=== PATIENT | female | born 1985 | race Two or more races ===

== ENCOUNTER 2025-01-04 15:42 | Emergency (ER) | payer MEDICAID, SELFPAY ==
[2025-01-04 15:43] VITALS: BMI 40.0
[2025-01-04 16:09] VITALS: BP 128/76; PULSE 86; RESP 18; TEMP 36.8; O2SAT 100
--- NOTE | 2025-01-04 16:11 | XR_ITS ---
Examination: CT brain head without contrast. 2-D sagittal coronal reconstructions Date and time of exam:January 04, 2025 1644 hours Comparison May 27, 2009 INDICATIONS: Onset generalized head pain beginning 3 days ago CTDI: vol (mGy):52.7 DLP: (mGycm):962 Technique: Multiple CT axial sections of the brain have been obtained, 5 mm slice thickness. Contrast has not been administered. 2-D sagittal, coronal reconstructions have been obtained Low dose protocols were performed. One or more of the following dose reduction techniques were used; automated exposure control, adjustment of the mA and/or KV according to patient size, use of iterative reconstruction technique. Findings: No significant ventricular enlargement. Intra-axial or extra-axial hemorrhage density is not seen. No mass effect or midline shift Basal cisterns are not remarkable. Fourth ventricle is midline. Cranial vault intact. Impression: Negative for acute hemorrhage, mass effect or midline shift Advise clinical correlation and follow-up accordingly
--- NOTE | 2025-01-04 16:12 | EDNOTE_ITS ---
ED Headache RME/HPI General Stated Complaint: SENT BY PCP FAIL NEURO TEST Time Seen by Provider: 01/04/25 15:48 Arrival date/time: 01/04/25 15:42 RME / HPI RME / HPI Narrative: 39-year-old female patient with significant history of migraine headache, came in for evaluation regarding worsening headache. Been having headache for the last 3 days, been taking her Tylenol and sumatriptan with no relief. Went to PCP today and was referred here for possible CT scan of the head. Denies any other complaints. No weakness no slurring of speech no blurry vision no nausea no vomiting no recent head trauma or fall. No fever also. Denies any neck pain. Related Data Previous Rx's ?Medication ?Instructions ?Recorded rizatriptan 10 mg tablet (Maxalt) 10 mg PO Q2H PRN ubaldo rachna headache 01/04/25 #20 tabs Allergies Allergy/AdvReac Type Severity Reaction Status Date / Time ibuprofen Allergy Verified 01/04/25 15:47 Review of Systems Review of Systems Narrative Review of Systems: Review of system reviewed and within normal limits except mentioned in HPI ED Exam Narrative Physical exam: VITAL SIGNS: Reviewed. GENERAL APPEARANCE: Alert and interactive, follows commands, no acute distress, HEAD AND FACE: Non-traumatic. ENT: PERRL, pink conjunctivitis, eyelid no trauma, Mucous membrane moist. NECK: Supple, nontender, no nuchal rigidity. CHEST: No tenderness, no crepitus, no paradoxical movement, no retractions. LUNGS: Clear, well ventilated, symmetric, no rales, no wheezing, no ronchi, no stridor, good breath sounds bilaterally. HEART: Regular rate, regular rhythm, no murmur, no gallops. ABDOMEN: Soft, positive bowel sounds, nondistended, no guarding, nontender, no rebound, no masses, RECTAL: Deferred. GENITAL: Deferred. NEUROLOGICAL: Gross motor function intact sensory function intact, Appropriate for age. MUSCULOSKELETAL: low back nontender, full range of motion. EXTREMITIES: Nontender, full range of motion. SKIN: Color pink, dry, no rash, no lacerations, no abrasions, no contusions. LYMPHATICS: Deferred. Course Quality Measures none Orders Category Date Time Status CT head/brain wo con Stat Exams 01/04/25 16:11 Completed HCG Qualitative,Urine Stat Lab 01/04/25 16:31 Completed Acetaminophen Tab [Tylenol ES Tab] Med 01/04/25 16:11 Discontinued 1,000 mg PO X1 ONE DiphenhydrAMINE [Benadryl] Med 01/04/25 16:11 Discontinued 50 mg PO X1 ONE Metoclopramide [Reglan] Med 01/04/25 16:11 Discontinued 10 mg PO X1 ONE Vital Signs Vital signs: Vital Signs Temperature 98.3 F 01/04/25 16:09 Pulse Rate 86 01/04/25 16:09 Respiratory Rate 18 01/04/25 16:09 Blood Pressure 128/76 01/04/25 16:09 Pulse Oximetry (%) 100 01/04/25 16:09 Oxygen Delivery Method Room Air 01/04/25 16:09 Headache MDM Narrative MDM Narrative:: 39-year-old female patient with significant history of migraine headache, came in for evaluation regarding worsening headache. Been having headache for the last 3 days, been taking her Tylenol and sumatriptan with no relief. Went to PCP today and was referred here for possible CT scan of the head. Denies any other complaints. No weakness no slurring of speech no blurry vision no nausea no vomiting no recent head trauma or fall. No fever also. Denies any neck pain. CT scan of the head came back unremarkable. Results discussed with the patient. Patient was given Tylenol Reglan and Benadryl with complete resolution of headache. Patient appears nontoxic and hemodynamically stable. Patient discharged home and instructed to follow-up with primary care provider in 24 to 48 hours. Instructed to return to the emergency department immediately if worsening of symptoms Patient data External records reviewed:: None Clinical information provided by:: patient Social determinants that could affect healthcare access:: none Patient has the following chronic illnesses:: history of migraine headache How is presenting disease/condition affected by chronic disease/condition?: exacerbated by Evaluation data The following diagnostics were reviewed and interpreted by me:: radiology exam(s) Lab and/or radiology exams considered but not ordered:: None Interpretation Summary: CT scan of the head came back normal Medications / Prescriptions Medications or Prescriptions considered but not ordered:: None Medication administrations:: Medication Administration History Discontinued Medications Acetaminophen (Acetaminophen 500 Mg Tablet) 1,000 mg PO X1 ONE Stop: 01/04/25 16:12 Last Admin: 01/04/25 16:53 Dose: 1,000 mg Documented By: OA Diphenhydramine HCl (Diphenhydramine 25 Mg Capsule) 50 mg PO X1 ONE Stop: 01/04/25 16:12 Last Admin: 01/04/25 16:53 Dose: 50 mg Documented By: OA Metoclopramide HCl (Metoclopramide 5 Mg Tablet) 10 mg PO X1 ONE Stop: 01/04/25 16:12 Last Admin: 01/04/25 16:53 Dose: 10 mg Documented By: OA Tylenol Benadryl and Reglan Consultations Consultation(s) initiated? (list below): No Diagnosis Differential diagnosis headache: migraine, tension headache and headache Most likely diagnosis given after review of the tests above:: Headache Admission Indicated Admission indicated?: not indicated Admission Request Was there a request for admission?: No Disposition Plan Disposition Plan: Discharge Discharge Attestation Discharge Attestation: The patient was given an opportunity to ask questions and understood the discharge instructions. Discharge instructions specifically effects, indications for sooner follow up or return to the emergency department, and the expected course of current diagnosis. Patient condition: Stable Discharge Plan Plan Patient Disposition: HOME (Self Care) Disposition Comment: stable Prescriptions/Referrals Prescriptions/Med Rec: New rizatriptan [Maxalt] 10 mg tablet 10 mg PO Q2H PRN (Reason: migraine headache) Qty: 20 0RF Rx Instructions: do not exceed 3 doses per 24 hrs Referrals: Harvinder Sanchez MD [Primary Care Provider] - In 1 week Problem List Clinical Impression: Headache Patient/Caregiver Discharge Instructions Discharge Activity: activity as tolerated Education Materials: Self-Care for Headaches Additional Instructions: Thank you for the opportunity for serving you today. You are stable for discharged . You are advised to: Follow-up with your PCP in 1 to 2 days Return to ED for worsening of symptoms Increase oral fluids Take medication as prescribed Print Language: Faroese Stand Alone Forms: Merly Award Info., Patient Portal Info Letter LOKI/ROSELYN Supervising Physician LOKI/ROSELYN Supervising Physician: MD Prabhjot
[2025-01-04 16:50] LABS: HCG Qualitative,Urine Negative
[2025-01-04] MEDS: METOCLOPRAMIDE 5 MG TABLET 10 MG PO (16:53)
[2025-01-04] MEDS: DiphenhydrAMINE 25 MG CAPSULE 50 MG PO (16:53)
[2025-01-04] MEDS: ACETAMINOPHEN 500 MG TABLET 1000 MG PO (16:53)
== END 2025-01-04 21:00 | disposition home or self-care (01) ==
PROVIDERS: Nurse Practitioner Family; Emergency Provider Emergency Medicine; PCP Family Medicine
DX: G43.909 Migraine, unspecified, not intractable, without status migrainosus (principal); Z88.6 Allergy status to analgesic agent
CPT/HCPCS: 70450; 81025; 99284; A9270

== ENCOUNTER 2025-01-13 22:11 | Emergency (ER) | payer MEDICAID, SELFPAY ==
[2025-01-13 22:45] VITALS: BP 127/80; PULSE 86; RESP 18; TEMP 36.8; O2SAT 99; BMI 37.7
--- NOTE | 2025-01-13 22:53 | EKG_ITS ---
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
--- NOTE | 2025-01-13 22:53 | EDRME_ITS ---
Rapid Medical Screening Exam [facility] Arrival date/time: 01/13/25 22:11 39F with history of migraines and anemia presents to ED with 1 week of worsening generalized weakness, dizziness, and SOB. Patient states last time this happened her Hgb was very low. Patient denies URI symptoms. Chief Complaint: Shortness of Breath/Dyspnea Vital signs: Vital Signs Temperature 98.3 F 01/13/25 22:45 Pulse Rate 86 01/13/25 22:45 Respiratory Rate 18 01/13/25 22:45 Blood Pressure 127/80 01/13/25 22:45 Pulse Oximetry (%) 99 01/13/25 22:45 Oxygen Delivery Method Room Air 01/13/25 22:45
[2025-01-13 23:19] LABS: Collection Type, Urine Clean Catch
[2025-01-13 23:19] LABS: Basophils # (Auto) 0.1 Thou/mm3 (0.0-0.2); Basophils % (Auto) 1 % (0-2.5); Eosinophils # (Auto) 0.1 Thou/mm3 (0.0-0.5); Eosinophils % (Auto) 1 % (0-10); Hematocrit 31.1 % (36.0-46.0); Hemoglobin 9.4 g/dL (12.0-16.0); Immature Granulocytes % (Auto) 0 % (0-0); Immature Granulocytes Auto 0.02 Thou/mm3 (0.00-0.00); Lymphocytes # (Auto) 3.6 Thou/mm3 (1.0-4.8); Lymphocytes % (Auto) 35 % (10-50); Mean Corpuscular HGB Conc 30.2 g/dl (31.0-37.0); Mean Corpuscular Hemoglobin 21.9 pg (25.0-35.0); Mean Corpuscular Volume 72 fL (80-100); Monocytes # (Auto) 0.7 Thou/mm3 (0.0-0.8); Monocytes % (Auto) 7 % (0-12); Neutrophils # (Auto) 5.8 Thou/mm3 (1.8-7.7); Neutrophils % (Auto) 56 % (37-80); Nucleated Red Blood Cell % 0 /100 WBC (0); Platelet Count 315 Thou/mm3 (140-440); White Blood Count 10.4 Thou/mm3 (3.6-11.0)
[2025-01-13 23:25] LABS: Bilirubin,Urine Negative (Negative); Blood,Urine Negative (Negative); Clarity,Urine Clear (Clear/Hazy); Color,Urine Colorless (Lt Yel-Yel); Glucose, Urine Negative (Negative); Ketones,Urine Negative (Negative); Leukocyte Esterase,Urine Negative (Negative); Nitrite,Urine Negative (Negative); PH,Urine 6.5 (5.0-7.0); Protein,Urine Negative (Neg - Trace); RBC,Urine < 1 /hpf (0-3); Specific Gravity,Urine 1.008 (1.001-1.035); Squamous Epithelial Cell,Urine 1 /hpf (0-5); Urobilinogen,Urine Negative mg/dL (0.0-1.0); WBC,Urine 1 /hpf (0-5)
[2025-01-13 23:29] LABS: HCG Qualitative,Urine Negative
[2025-01-14 00:18] LABS: Alanine Aminotransferase 16 U/L (10-49); Albumin, Serum 4.6 gm/dL (3.5-5.0); Albumin/Globulin Ratio 1.5 (1.2-2.2); Alkaline Phosphatase 125 U/L (46-116); Anion Gap 6 (7-16); Aspartate Amino Transferase 18 U/L (0-34); BUN/Creatinine Ratio 16 Ratio (12-20); Bilirubin,Total 0.3 mg/dL (0.3-1.2); Blood Urea Nitrogen 11 mg/dL (9-23); Calcium 9.5 mg/dL (8.3-10.6); Calcium (Corrected) 9.5 mg/dL (8.5-10.1); Carbon Dioxide 29.5 mMol/L (20.0-31.0); Chloride 108 mMol/L (98-107); Creatinine (Component) 0.7 mg/dL (0.6-1.3); Estimated Creatinine Clearance 144.8 mL/min (>60); Globulin 3.1 gm/dL (2.3-3.5); Glucose 79 mg/dL (74-106); Osmolality,Calculated 283 (275-295); Sodium 143 mMol/L (136-145); Total Protein 7.7 gm/dL (5.7-8.2); Troponin I < 0.002 ng/mL (0.0-0.045); eGFR > 60 See Note
--- NOTE | 2025-01-14 02:35 | PD.EDSOB ---
ED SOB =RME/HPI General Chief Complaint: Shortness of Breath/Dyspnea Stated Complaint: SHORTNESS OF BREATH/DIZZINESS Time Seen by Provider: 01/13/25 22:56 Arrival date/time: 01/13/25 22:11 39F with history of migraines and anemia presents to ED with 1 week of worsening generalized weakness, dizziness, and SOB. Patient states last time this happened her Hgb was very low. Patient denies URI symptoms. Limitations: no limitations RME / HPI RME / HPI Narrative: 01/13/25 22:11 39F with history of migraines and anemia presents to ED with 1 week of worsening generalized weakness, dizziness, and SOB. Patient states last time this happened her Hgb was very low. Patient denies URI symptoms. Related Data Previous Rx's ?Medication ?Instructions ?Recorded rizatriptan 10 mg tablet (Maxalt) 10 mg PO Q2H PRN migraine headache 01/04/25 #20 tabs Allergies Allergy/AdvReac Type Severity Reaction Status Date / Time ibuprofen Allergy Verified 01/13/25 22:13 Review of Systems Review of Systems Systems Reviewed: All systems reviewed, normal except as documented Constitutional Constitutional: Reports system reviewed and no additional complaints, except as documented, Denies fever(s), Denies headache(s) and Reports weakness ENT Ears, Nose, Mouth, and Throat: Reports as per HPI, Denies disequilibrium, Denies headache(s) and Reports vertigo Cardiovascular Cardiovascular: Reports system reviewed and no additional complaints, except as documented, Denies chest pain and Denies dyspnea Respiratory Respiratory: Reports system reviewed and no additional complaints, except as documented, Reports as per HPI, Reports cough and Denies dyspnea Gastrointestinal Gastrointestinal: Reports system reviewed and no additional complaints, except as documented, Denies abdominal pain, Denies nausea and Denies vomiting Neurologic Neurologic: Reports system reviewed and no additional complaints, except as documented, Reports as per HPI, Denies confusion, Denies disequilibrium, Denies headache(s), Reports vertigo and Reports weakness Psychiatric Psychiatric: Denies confusion Past Medical History Past Medical History NEUROLOGIC: Positive Migraine; Negative Seizures or Traumatic Brain Injury CARDIAC: Positive Varicose Veins; Negative Cardiac Disorders, Congestive Heart Failure or Edema RESPIRATORY: Positive Pneumonia; Negative Chronic Obstructive Pulmonary Disease (COPD), Asthma, Tuberculosis or Sleep Apnea GASTROINTESTINAL: Positive Gall Bladder Disease; Negative Hepatitis, Celiac Disease, Colitis, Ulcer, Irritable Bowel, Crohn's Disease or Hemorrhoids GENITOURINARY: Negative Genitourinary Disorders, Renal Disease, Kidney Stones or Dialysis REPRODUCTIVE: Positive Previous Pregnancies MUSCULOSKELETAL: Positive Arthritis; Negative Osteoporosis, Gout, Scoliosis or Fractures ENT: Negative Glaucoma or Ear Infection ENDOCRINE: Negative Endocrine Disorders, Diabetes Mellitus Type 1, Diabetes Mellitus Type 2, Hypoglycemia or Hyperthyroidism HEMATOLOGIC: Positive Blood Disorders and Anemia; Negative Hemophilia, Sickle Cell Disease or Clotting Problems PSYCHO/SOCIAL: Positive Anxiety and Depression; Negative Recreational Drug Use or Bipolar Disorder OTHER HISTORY: Positive Chicken Pox; Negative Hospitalization, Autoimmune Disease, Down Syndrome, Developmental Delay, Shingles, Falls, Blood Transfusions, Blood Transfusion Reaction, Anesthesia Reactions, Chemotherapy, Radiation Therapy, MRSA, VRSA, Measles, Mumps or Cancer Family History FAMILY HISTORY: Positive Family Cardiac Disorders and Family Gastrointestinal Problems; Negative Family Psychiatric Problems, Family Respiratory Disorders, Family Cancer, Family Surgery or Family Anesthesia Reaction Surgical History SURGICAL: Positive Abdominal Surgery, Gastric Bypass Surgery and Section; Negative Pacemaker Social History SMOKING STATUS: Never smoker ED Exam General Limitations: Present no limitations General appearance: Present alert and in no apparent distress Head Head exam: Present atraumatic Eye Eye exam: Present normal appearance, PERRL and EOMI ENT ENT exam: Present normal exam, normal oropharynx and mucous membranes moist Neck Neck exam: Present normal inspection, full ROM and trachea midline Chest Chest inspection: Present normal inspection and symmetric chest wall rise Respiratory Respiratory exam: Present normal lung sounds bilaterally Cardiovascular Cardiovascular exam: Present regular rate, normal rhythm and normal heart sounds Abdominal Exam Abdominal exam: Present soft and normal bowel sounds Extremities Exam Extremities exam: Present normal inspection and full ROM Back Exam Back exam: Present normal inspection and full ROM Neurological Exam Neurological exam: Present alert, oriented X3 and CN II-XII intact Psychiatric Psychiatric exam: Present normal affect and normal mood Skin Skin exam: Present warm, dry, intact and normal color Course Quality Measures none Orders Category Date Time Status EKG (ED ONLY) *Do not use* NOW Care 01/13/25 22:53 Completed EKG (ED Only) Stat Exams 01/13/25 22:53 Draft CBC Stat Lab 01/13/25 23:01 Completed Comprehensive Metabolic Panel Stat Lab 01/13/25 23:01 Completed HCG Qualitative,Urine Stat Lab 01/13/25 23:10 Completed Troponin I Stat Lab 01/13/25 23:01 Completed Urinalysis Stat Lab 01/13/25 23:10 Completed Vital Signs Vital signs: Vital Signs Temperature 98.3 F 01/13/25 22:45 Pulse Rate 86 01/13/25 22:45 Respiratory Rate 18 01/13/25 22:45 Blood Pressure 127/80 01/13/25 22:45 Pulse Oximetry (%) 99 01/13/25 22:45 Oxygen Delivery Method Room Air 01/13/25 22:45 O2 at 99% on RA and WNLs Shortness of Breath / Dyspnea MDM Narrative MDM Narrative:: 39F with history of migraines and anemia presents to ED with 1 week of worsening generalized weakness, dizziness, and SOB. Patient states last time this happened her Hgb was very low. Patient denies URI symptoms. Physical exam reveals clear ENT and lungs. RRR. Normal WOB. Patient is afebrile, calm, and alert. EKG is NSR. CMP unremarkable. Trop normal. UA clean. No dehydration. Hgb 9.4, likely causing symptoms. Patient states she's prone to heavy and long menstrual cycles. 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 Patient data External records reviewed:: [facility] previous records Clinical information provided by:: patient Social determinants that could affect healthcare access:: none Patient has the following chronic illnesses:: migraines and anemia How is presenting disease/condition affected by chronic disease/condition?: caused by Evaluation data The following diagnostics were reviewed and interpreted by me:: lab results and EKG tracing(s) Lab and/or radiology exams considered but not ordered:: ordered Interpretation Summary: above Medications / Prescriptions Medications or Prescriptions considered but not ordered:: not ordered Medication administrations:: n/a Consultations Consultation(s) initiated? (list below): No Diagnosis Shortness of Breath Differential Diagnosis: acute exacerbation of chronic obstructive airways disease, congestive heart failure, community acquired pneumonia, asthma with exacerbation, pulmonary embolism and other (anemia) Most likely diagnosis given after review of the tests above:: anemia Admission Indicated Admission indicated?: not indicated Admission Request Was there a request for admission?: No Disposition Plan Disposition Plan: Discharge Discharge Attestation Discharge Attestation: The patient and all family members were given an opportunity to ask questions and understood the discharge instructions. Discharge instructions specifically effects, indications for sooner follow up or return to the emergency department, and the expected course of current diagnosis. Patient condition: Stable Discharge Plan Plan Patient Disposition: HOME (Self Care) Disposition Comment: Stable Prescriptions/Referrals Prescriptions/Med Rec: No Action rizatriptan [Maxalt] 10 mg tablet 10 mg PO Q2H PRN (Reason: migraine headache) Qty: 20 0RF Rx Instructions: do not exceed 3 doses per 24 hrs Referrals: Harvinder Sanchez MD [Primary Care Provider] - In 1 week Problem List Clinical Impression: Anemia Patient/Caregiver Discharge Instructions Education Materials: ED Anemia Type Not Specified Additional Instructions: Please follow-up with PCP/OBGYN within 24-48 hours and return immediately if symptoms worsen. Print Language: Iranian Stand Alone Forms: Patient Portal Info Letter PA/RETAIL SALES ASSOCIATE Supervising Physician PA/RETAIL SALES ASSOCIATE Supervising Physician: Dr. Herron
[2025-01-14 02:40] VITALS: BP 113/75; PULSE 79; RESP 18; TEMP 36.8; O2SAT 98
== END 2025-01-14 02:43 | disposition home or self-care (01) ==
PROVIDERS: Physician Assistant; Emergency Provider Emergency Medicine; PCP Family Medicine
DX: D64.9 Anemia, unspecified (principal); G43.909 Migraine, unspecified, not intractable, without status migrainosus; Z98.84 Bariatric surgery status
CPT/HCPCS: 36415; 80053; 81001; 81025; 84484; 85025; 93005; 99283

== ENCOUNTER 2025-07-21 16:28 | Emergency (ER) | payer MEDICAID, SELFPAY ==
[2025-07-21 16:35] VITALS: BP 122/73; PULSE 89; RESP 18; TEMP 37.3; O2SAT 99; BMI 38.9
--- NOTE | 2025-07-21 16:52 | EKG_ITS ---
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
--- NOTE | 2025-07-21 16:52 | XR_ITS ---
Examination: PA lateral chest 2 views Technique: Upright PA lateral chest 2 views Date and time: July 21, 2025, 1707 hrs. Indications: Chest pain beginning 2 weeks ago. Findings: Normal heart size. Lungs are clear. The osseous structures are intact Impression: No active disease.
--- NOTE | 2025-07-21 16:53 | PD.EDRME ---
Rapid Medical Screening Exam [facility] Arrival date/time: 07/21/25 16:28 40-year-old female with no known medical history presents to the emergency room with a chief complaint of chest pain, palpitations, generalized weakness x 1 week I have greeted and performed a focused initial assessment of this patient. A comprehensive ED assessment and evaluation of the patient, analysis of all test results, and completion of the medical decision making process will be conducted by additional ED providers. Chief Complaint: Weakness Vital signs: Vital Signs Temperature 99.1 F 07/21/25 16:35 Pulse Rate 89 07/21/25 16:35 Respiratory Rate 18 07/21/25 16:35 Blood Pressure 122/73 07/21/25 16:35 Pulse Oximetry (%) 99 07/21/25 16:35 Oxygen Delivery Method Room Air 07/21/25 16:35 Vital signs reviewed by provider: Yes
[2025-07-21 17:19] LABS: Basophils # (Auto) 0.1 Thou/mm3 (0.0-0.2); Basophils % (Auto) 1 % (0-2.5); Eosinophils # (Auto) 0.1 Thou/mm3 (0.0-0.5); Eosinophils % (Auto) 1 % (0-10); Hematocrit 28.7 % (36.0-46.0); Immature Granulocytes Auto 0.02 Thou/mm3 (0.00-0.00); Lymphocytes # (Auto) 3.5 Thou/mm3 (1.0-4.8); Lymphocytes % (Auto) 32 % (10-50); Mean Corpuscular HGB Conc 30.3 g/dl (31.0-37.0); Mean Corpuscular Hemoglobin 20.9 pg (25.0-35.0); Mean Corpuscular Volume 69 fL (80-100); Monocytes # (Auto) 0.5 Thou/mm3 (0.0-0.8); Monocytes % (Auto) 5 % (0-12); Neutrophils # (Auto) 6.7 Thou/mm3 (1.8-7.7); Neutrophils % (Auto) 62 % (37-80); Nucleated Red Blood Cell # 0.00 Thou/mm3 (0.00-0.00); Nucleated Red Blood Cell % 0 /100 WBC (0); Platelet Count 361 Thou/mm3 (140-440); RDW Standard Deviation 45.5 fL (36.4-46.3); Red Blood Count 4.17 Miln/mm3 (4.00-5.20); White Blood Count 10.8 Thou/mm3 (3.6-11.0)
[2025-07-21 17:20] LABS: Hemoglobin 8.7 g/dL (12.0-16.0)
[2025-07-21 17:26] LABS: Collection Type, Urine Clean Catch
[2025-07-21 17:40] LABS: INR 1.0 (0.9-1.3); Partial Thromboplastin Time 23.9 Seconds (22.0-36.0); Prothrombin Time 10.7 Seconds (9.0-12.2)
[2025-07-21 17:41] LABS: B-Type Natriuretic Peptide < 20 pg/mL (0-100)
[2025-07-21 17:41] LABS: Bilirubin,Urine Negative (Negative); Blood,Urine Negative (Negative); Clarity,Urine Clear (Clear/Hazy); Color,Urine Colorless (Lt Yel-Yel); Culture Indicated,Urine Not Indicated; Glucose, Urine Negative (Negative); Ketones,Urine Negative (Negative); Leukocyte Esterase,Urine Negative (Negative); Nitrite,Urine Negative (Negative); PH,Urine 6.5 (5.0-7.0); Protein,Urine Negative (Neg - Trace); RBC,Urine 1 /hpf (0-3); Specific Gravity,Urine 1.004 (1.001-1.035); Squamous Epithelial Cell,Urine 1 /hpf (0-5); Urobilinogen,Urine Negative mg/dL (0.0-1.0); WBC,Urine < 1 /hpf (0-5)
[2025-07-21 17:46] LABS: Amphetamine/Methamp Scrn,U Negative (Negative); Barbiturate Screen,Urine Negative (Negative); Benzodiazepines Screen,Urine Negative (Negative); Benzoylecgonine Screen, Ur Negative (Negative); Fentanyl Screen,Urine Negative (Negative); Opiate Screen,Urine Negative (Negative); THC Screen,Urine Negative (Negative)
[2025-07-21 17:54] LABS: Alanine Aminotransferase 9 U/L (10-49); Albumin, Serum 4.4 gm/dL (3.5-5.0); Albumin/Globulin Ratio 1.5 (1.2-2.2); Alkaline Phosphatase 105 U/L (46-116); Anion Gap 11 (7-16); Aspartate Amino Transferase 16 U/L (0-34); BUN/Creatinine Ratio 9 Ratio (12-20); Bilirubin,Total 0.3 mg/dL (0.3-1.2); Blood Urea Nitrogen 7 mg/dL (9-23); Calcium 9.5 mg/dL (8.3-10.6); Calcium (Corrected) 9.5 mg/dL (8.5-10.1); Carbon Dioxide 23.5 mMol/L (20.0-31.0); Chloride 106 mMol/L (98-107); Creatinine (Component) 0.8 mg/dL (0.6-1.3); Estimated Creatinine Clearance 119.4 mL/min (>60); Free T4 (Free Thyroxine) 1.04 ng/dL (0.89-1.76); Globulin 2.9 gm/dL (2.3-3.5); Glucose 89 mg/dL (74-106); Magnesium 1.9 mg/dL (1.6-2.6); Osmolality,Calculated 276 (275-295); Potassium 3.9 mMol/L (3.4-5.1); Sodium 140 mMol/L (136-145); Thyroid Stimulating Hormone 2.36 uIU/mL (0.55-4.78); Total Protein 7.3 gm/dL (5.7-8.2); Troponin I < 0.002 ng/mL (0.0-0.045); eGFR > 60 See Note
--- NOTE | 2025-07-21 19:19 | EDNOTE_ITS ---
ED Weakness RME/HPI General Chief complaint: Weakness Stated complaint: SOB, C/P, DIZZYNESS X3 WEEKS, HISTORY OF ANEMIA Time Seen by Provider: 07/21/25 16:53 Arrival date/time: 07/21/25 16:28 RME / HPI RME / HPI Narrative: 40-year-old female with no known medical history presents to the emergency room with a chief complaint of chest pain, palpitations, generalized weakness x 1 week she had a history of anemia. Patient complaining of heavy menstruation, currently followed by [facility]. She is pending to be seen by our cancer center for iron infusion . Related Data Previous Rx's ?Medication ?Instructions ?Recorded rizatriptan 10 mg tablet (Maxalt) 10 mg PO Q2H PRN ubaldo rachna headache 01/04/25 #20 tabs Allergies Allergy/AdvReac Type Severity Reaction Status Date / Time ibuprofen Allergy Verified 07/21/25 16:31 Review of Systems Review of Systems Narrative Review of Systems: Review of system reviewed and within normal limits except mentioned in HPI ED Exam Narrative Physical exam: VITAL SIGNS: Reviewed. GENERAL APPEARANCE: Alert and interactive, follows commands, no acute distress, HEAD AND FACE: Non-traumatic. ENT: PERRL, pale conjunctivita eyelid no trauma, Mucous membrane moist. NECK: Supple, nontender, no nuchal rigidity. CHEST: No tenderness, no crepitus, no paradoxical movement, no retractions. LUNGS: Clear, well ventilated, symmetric, no rales, no wheezing, no ronchi, no stridor, good breath sounds bilaterally. HEART: Regular rate, regular rhythm, no murmur, no gallops. ABDOMEN: Soft, positive bowel sounds, nondistended, no guarding, nontender, no rebound, no masses, RECTAL: Deferred. GENITAL: Deferred. NEUROLOGICAL: Gross motor function intact sensory function intact, Appropriate for age. MUSCULOSKELETAL: low back nontender, full range of motion. EXTREMITIES: Nontender, full range of motion. SKIN: Color pink, dry, no rash, no lacerations, no abrasions, no contusions. LYMPHATICS: Deferred. Course Quality Measures none Orders Category Date Time Status EKG (ED ONLY) *Do not use* NOW Care 07/21/25 16:52 Completed EKG (ED Only) Stat Exams 07/21/25 16:52 Draft XR chest 2V Stat Exams 07/21/25 16:52 Completed B-Type Natriuretic Peptide Stat Lab 07/21/25 17:02 Completed CBC Stat Lab 07/21/25 17:02 Completed Comprehensive Metabolic Panel Stat Lab 07/21/25 17:02 Completed Drug Screen,Urine Stat Lab 07/21/25 17:05 Completed Free T4 (Free Thyroxine) Stat Lab 07/21/25 17:02 Completed Magnesium Stat Lab 07/21/25 17:02 Completed Partial Thromboplastin Time Stat Lab 07/21/25 17:02 Completed Prothrombin Time with INR Stat Lab 07/21/25 17:02 Completed TSH [Thyroid Stimulating Hormone] Stat Lab 07/21/25 17:02 Completed Troponin I Stat Lab 07/21/25 17:02 Completed Urinalysis, C/S if Indicated Stat Lab 07/21/25 17:05 Completed Vital Signs Vital signs: Vital Signs Temperature 99.1 F 07/21/25 16:35 Pulse Rate 89 07/21/25 16:35 Respiratory Rate 18 07/21/25 16:35 Blood Pressure 122/73 07/21/25 16:35 Pulse Oximetry (%) 99 07/21/25 16:35 Oxygen Delivery Method Room Air 07/21/25 16:35 Weakness MDM Narrative MDM Narrative:: 40-year-old female with no known medical history presents to the emergency room with a chief complaint of chest pain, palpitations, generalized weakness x 1 week she had a history of anemia. Patient complaining of heavy menstruation, currently followed by [facility]. She is pending to be seen by our cancer center for iron infusion . EKG showed normal sinus rhythm, ventricular rate of 87 bpm, no ST segment elevation or depression noted. Patient CBC showed hemoglobin of 8.7 hematocrit of 28.7 the rest of the labs unremarkable. Imaging finding results discussed with the patient. Patient does not qualify for emergency blood transfusion at this time. Patient was advised to closely follow-up with cancer center for iron transfusion if needed. Patient data External records reviewed:: None Clinical information provided by:: patient Social determinants that could affect healthcare access:: none Patient has the following chronic illnesses:: Anemia How is presenting disease/condition affected by chronic disease/condition?: exacerbated by Evaluation data The following diagnostics were reviewed and interpreted by me:: lab results, radiology exam(s) and EKG tracing(s) Lab and/or radiology exams considered but not ordered:: None Interpretation Summary: see results MDM Medications / Prescriptions Medications or Prescriptions considered but not ordered:: None Medication administrations:: None Consultations Consultation(s) initiated? (list below): No Diagnosis Weakness Differential Diagnosis: anemia and dehydration Most likely diagnosis given after review of the tests above:: Anemia, dizziness Admission Indicated Admission indicated?: not indicated Explain why admission is indicated or not indicated:: Stable Admission Request Was there a request for admission?: No Disposition Plan Disposition Plan: Discharge Discharge Attestation Discharge Attestation: The patient waqs given an opportunity to ask questions and understood the discharge instructions. Discharge instructions specifically effects, indicati ons for sooner follow up or return to the emergency department, and the expected course of current diagnosis. Patient condition: Stable Discharge Plan Plan Patient Disposition: HOME (Self Care) Discharge Disposition comment: Stable Prescriptions/Referrals Prescriptions/Med Rec: No Action rizatriptan [Maxalt] 10 mg tablet 10 mg PO Q2H PRN (Reason: migraine headache) Qty: 20 0RF Rx Instructions: do not exceed 3 doses per 24 hrs Referrals: Harvinder Sanchez MD [Primary Care Provider, Family Practice] - In 1 week Problem List Clinical Impression: Dizziness, Anemia Patient/Caregiver Discharge Instructions Discharge Activity: activity as tolerated Education Materials: Anemia Additional Instructions: Thank you for the opportunity for serving you today. You are stable for discharged . You are advised to: Follow-up with your PCP in 1 to 2 days Return to ED for worsening of symptoms Increase oral fluids Increase your intake of red meat and green leafy vegetables for now Print Language: Citizen Of [place] Stand Alone Forms: Merly Award Info., Patient Portal Info Letter LOKI/ROSELYN Supervising Physician LOKI/ROSELYN Supervising Physician: MD Alcon
== END 2025-07-21 19:36 | disposition home or self-care (01) ==
PROVIDERS: Nurse Practitioner Family; Emergency Provider Emergency Medicine; PCP Family Medicine
DX: D64.9 Anemia, unspecified (principal); R07.9 Chest pain, unspecified; Z88.6 Allergy status to analgesic agent
CPT/HCPCS: 36415; 71046; 80053; 80307; 81001; 83735; 83880; 84439; 84443; 84484; 85025; 85610; 85730; 93005; 99283

== ENCOUNTER 2025-09-18 07:50 | Outpatient (RCR) | payer MEDICAID, SELFPAY | END 2025-10-15 23:59 | disposition home or self-care (01) | LOC: SCTC 07:50 | PROVIDERS: PCP Physician Assistant Medical; Visit Provider Nurse Practitioner Family | DX: D50.9 Iron deficiency anemia, unspecified (principal); N92.0 Excessive and frequent menstruation with regular cycle | CPT/HCPCS: 99213; G0463 ==

== ENCOUNTER 2025-09-22 13:02 | Outpatient (AMB) | payer MEDICAID, SELFPAY ==
[2025-09-22 13:11] VITALS: BP 108/67; PULSE 76; RESP 18; TEMP 36.5; O2SAT 99; BMI 37.3
--- NOTE | 2025-09-22 13:11 | ACNOTE_ITS ---
Vital Signs 09/22/25 13:11 Height 1.68 m Height Method Stated Weight 105.347 kg Weight Measurement Method Standing Scale BMI 37.3 BP 108/67 Blood Pressure Source Automatic Cuff Blood Pressure Location Right Upper Arm Position Sitting Respiration 18 Pulse 76 Pulse Source Monitor Temp 97.7 F Temp Source Temporal Artery Scan Pulse Oximetry (%) 99 Oxygen Delivery Method Room Air Allergies/Meds Allergies & Medications Allergies ibuprofen Allergy (Verified 09/22/25 13:12) Medication Reconciliation rizatriptan 10 mg tablet (Maxalt) 10 mg PO Q2H PRN migraine headache #20 tabs 01/04/25 [Rx Confirmed 09/22/25] MA Intake Visit Data Collection New Patient or Established: Established Patient (seen at [facility] within 3 years) Seen by Clinical Staff ONLY (RN/MA): No Pain Present Currently: No Pain scale:: 0 Pain Scale Used: Bosch-Cuellar/Numerical Coat Joiner Required: No PCP or OBGYN visit in last 3 months: Yes Hx Now: No Do You Feel Safe at Home: Yes Authorities Contacted: N/A Smoking Status Smoking Status: Never smoker Immunization / Flu Flu Vaccine in the Last 12 Months: Yes Flu Vaccine Exclusion Criteria: Already Received Past Medical History Past Medical History NEUROLOGIC: Positive Migraine; Negative Seizures or Traumatic Brain Injury CARDIAC: Positive Varicose Veins; Negative Cardiac Disorders, Congestive Heart Failure or Edema RESPIRATORY: Positive Pneumonia; Negative Chronic Obstructive Pulmonary Disease (COPD), Asthma, Tuberculosis or Sleep Apnea GASTROINTESTINAL: Positive Gall Bladder Disease; Negative Hepatitis, Celiac Disease, Colitis, Ulcer, Irritable Bowel, Crohn's Disease or Hemorrhoids GENITOURINARY: Negative Genitourinary Disorders, Renal Disease, Kidney Stones or Dialysis REPRODUCTIVE: Positive Previous Pregnancies MUSCULOSKELETAL: Positive Arthritis; Negative Osteoporosis, Gout, Scoliosis or Fractures ENT: Negative Glaucoma or Ear Infection ENDOCRINE: Negative Endocrine Disorders, Diabetes Mellitus Type 1, Diabetes Mellitus Type 2, Hypoglycemia or Hyperthyroidism HEMATOLOGIC: Positive Blood Disorders and Anemia; Negative Hemophilia, Sickle Cell Disease or Clotting Problems PSYCHO/SOCIAL: Positive Anxiety and Depression; Negative Recreational Drug Use or Bipolar Disorder OTHER HISTORY: Positive Chicken Pox; Negative Hospitalization, Autoimmune Disease, Down Syndrome, Developmental Delay, Shingles, Falls, Blood Transfusions, Blood Transfusion Reaction, Anesthesia Reactions, Chemotherapy, Radiation Therapy, MRSA, VRSA, Measles, Mumps or Cancer Family History FAMILY HISTORY: Positive Family Cardiac Disorders and Family Gastrointestinal Problems; Negative Family Psychiatric Problems, Family Respiratory Disorders, Family Cance r, Family Surgery or Family Anesthesia Reaction Surgical History SURGICAL: Positive Abdominal Surgery, Gastric Bypass Surgery and Section; Negative Pacemaker Social History SMOKING STATUS: Smoking status: Never smoker ALCOHOL: Alcohol Intake: Current HOUSING: Housing: House Patient [facility] Social History Living Situation History Housing: House Tobacco History Smoking Status: Never smoker Alcohol History Alcohol Intake: Current Domestic Abuse History Do You Feel Safe at Home: Yes Review of Systems Report any current symptoms Only answer those that you have currently: Past Medical History Past Medical History Have you ever been diagnosed with any of the following: Neurological Problems Seizures: No Migraine: Yes Traumatic Brain Injury: No Cardiology Problems Congestive Heart Failure: No Edema: No Varicose Veins: Yes Respiratory Problems Chronic Obstructive Pulmonary Disease (COPD): No Asthma: No Pneumonia: Yes Tuberculosis: No Sleep Apnea: No Stomache/Intestinal Problems Hepatitis: No Celiac Disease: No Gall Bladder Disease: Yes Colitis: No Ulcer: No Irritable Bowel: No Crohn's Disease: No Hemorrhoids: No Genital/Urinary Problems Renal Disease: No Kidney Stones: No Dialysis: No Reproductive Problems Previous Pregnancies: Yes Musculoskeletal Problems Arthritis: Yes Osteoporosis: No Gout: No Scoliosis: No Fractures: No Head,Eye,Nose,Throat Problems Glaucoma: No Chronic Ear Infections: No Endocrine Problems Diabetes Mellitus Type 1: No Diabetes Mellitus Type 2: No Hypoglycemia: No Hyperthyroidism: No Blood Problems Anemia: Yes Hemophilia: No Sickle Cell Disease: No Clotting Problems: No Psychologic Problems Recreational Drug Use: No Bipolar Disorder: No Anxiety: Yes Depression: Yes Other Problems Hospitalization: No Autoimmune Disease: No Down Syndrome: No Developmental Delay: No Shingles: No Falls: No Blood Transfusions: No Blood Transfusion Reaction: No Anesthesia Reactions: No Chemotherapy: No Radiation Therapy: No MRSA: No VRSA: No Chicken Pox: Yes Measles: No Mumps: No Cancer: No Surgical History Pacemaker: No History of Present Illness HPI Narrative Patient presents for a routine school physical. Denies any chronic medical conditions, recent illness, injury, or hospitalization. No current medications. No allergies. Reports feeling well overall with no complaints of chest pain, shortness of breath, dizziness, or palpitations. No history of syncope or exercise i ntolerance. Vaccinations reviewed and up to date. Objective/Exam Narrative Physical exam: General: Well-appearing, alert, oriented ?3, no acute distress. HEENT: Normocephalic, atraumatic, PERRLA, EOMI, oropharynx clear. Neck: Supple, no lymphadenopathy or thyromegaly. Cardiovascular: RRR, no murmurs, rubs, or gallops. Respiratory: Lungs clear to auscultation bilaterally, no wheezes or rales. Abdomen: Soft, non-tender, no organomegaly or masses. Extremities: No edema, normal ROM and strength. Neuro: Alert, CN II?XII intact, normal gait and coordination. Skin: No rashes or lesions noted. Vision/Hearing: Normal screening. Assessment & Plan Diagnosis / Problem List (1) Healthy adult on routine physical examination: Status: Acute Assessment & Plan: Normal physical examination. No medical contraindications to school participation. Plan: Plan: * Cleared for school participation without restriction. * Immunizations verified as up to date. * Counseling provided on nutrition, exercise, and preventive health. * Return to clinic as needed or for annual checkup. ----- Plan discussed with attending physician Dr. Iliana Andujar MD PGY-1 Internal Medicine Office Procedures [facility] Level of Care Nursing/Assessment Patient Status: Established Patient Nursing Assessment/Reassessment: Medication Reconciliation, Update PMH in EMR and Vital Signs Coordination of Care: Complex Care and Chronic Disease 1-5, Complex Care/Chronic Disease 5 or more, Education Complex Pt/Fam, Consent,records obtained, informed consent, Lab and Imaging orders, Results/Orders obtained and Staff clarify orders Established Patient Charge Established Patient Point Assignment: 145 Established Patient Point Charge: Level 4 (120-155)
== END 2025-09-22 14:33 | disposition home or self-care (01) ==
PROVIDERS: Supervising Provider Internal Medicine
DX: Z00.00 Encounter for general adult medical examination without abnormal findings (principal)
CPT/HCPCS: 99214; G0463

== ENCOUNTER 2025-10-18 10:52 | Outpatient (RCR) | payer MEDICAID, SELFPAY | END 2025-11-15 23:59 | disposition home or self-care (01) | LOC: SCTC 10:52 | PROVIDERS: PCP Physician Assistant; Referring Provider Nurse Practitioner Family; Visit Provider Nurse Practitioner Family | DX: D50.9 Iron deficiency anemia, unspecified (principal); N92.0 Excessive and frequent menstruation with regular cycle | CPT/HCPCS: 99212; G0463 ==